=== PATIENT | female | born 1995 | race American Indian/Alaskan Native ===

== ENCOUNTER 2018-10-31 07:40 | Emergency (ER) | payer SELFPAY ==
[2018-10-31 07:43] VITALS: BP 135/82
[2018-10-31] MEDS ORDERED: ZOFRAN ODT PO ONE (09:10)
[2018-10-31] MEDS ORDERED: TYLENOL #3 PO ONE (09:11)
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
== END 2018-10-31 11:04 | disposition home or self-care (01) ==
LOC: ED 07:40
DX: S16.1XXA Strain of muscle, fascia and tendon at neck level, initial encounter (principal); M25.561 Pain in right knee; M79.671 Pain in right foot; F17.200 Nicotine dependence, unspecified, uncomplicated; V89.2XXA Person injured in unspecified motor-vehicle accident, traffic, initial encounter; Y93.89 Activity, other specified; Y92.488 Other paved roadways as the place of occurrence of the external cause; Y99.8 Other external cause status
CPT/HCPCS: 72040; 99284; Q0162